=== PATIENT | female | born 1945 | race Caucasian/White ===

== ENCOUNTER 2022-02-22 00:16 | Day surgery (SDC) | payer MEDICARE, BC, SELFPAY ==
--- NOTE | 2022-02-18 12:44 | PC.NURSE ---
attempted pre-procedure call, left message to arrive at 0730 on monday, nothing to eat or drink after midnight, no eliquis to be taken after 02/19 and to wear comfortable clothing. phone number left to call us back if she has any questions or concerns
[2022-02-22] VITALS (9 sets, daily range): BP systolic 131–167; BP diastolic 56–98; PULSE 82–106; RESP 16–18; TEMP 36.2–36.5; O2SAT 95–98; BMI 36.1
--- NOTE | 2022-02-22 08:44 | SUR.PREOP ---
Dr. Steven TADEO at bedside talking with patient and family preprocedure.
--- NOTE | 2022-02-22 08:48 | WPDHPUPDATE1 ---
History and Physical Update Update Date/Time: 02/22/22 08:48 History and Physical has been reviewed, including an updated exam of the patient. There are NO changes in the patient's condition. Risks, benefits, and alternatives have been discussed and questions answered. Patient agrees to proceed with procedure.
--- NOTE | 2022-02-22 08:48 | WPDMODSED ---
Moderate Sedation Note-Pt Data Patient Data Allergies Allergy/AdvReac Type Severity Reaction Status Date / Time Penicillins Allergy Severe HIVES,FACIAL Verified 02/22/22 07:44 SWELLING Home Medications Medication Instructions Recorded Confirmed Type apixaban 5 mg tablet (Eliquis) 5 mg PO BID 09/17/20 02/22/22 History biotin 1,000 mcg chewable tablet 1,000 mcg PO DAILY 09/17/20 02/22/22 History cetirizine 10 mg tablet 5 mg PO DAILY 09/17/20 02/22/22 History cholecalciferol (vitamin D3) 25 25 mcg PO DAILY 09/17/20 02/22/22 History mcg (1,000 unit) capsule furosemide 40 mg tablet 40 mg PO QAM 09/17/20 02/22/22 History metoprolol succinate 25 mg 25 mg PO DAILY 09/17/20 02/22/22 History tablet,extended release 24 hr omeprazole 40 mg capsule,delayed 40 mg PO DAILY 09/17/20 02/22/22 History release trazodone 100 mg tablet 50 mg PO BID 09/17/20 09/17/20 History Sedation/Anesthesia: No previous sedation/anesthesia problems (including family history). [facility] Past Medical History Medical History (Updated 09/17/20 @ 10:33 by Vahid Rdz MD) Anemia Arthritis of right knee BMI 40.0-44.9, adult Cardiac arrhythmia Surgical History Surgical History (Updated 09/17/20 @ 10:28 by Vahid Rdz MD) H/O shoulder surgery reverse left shoulder, March 2020, Dr. Mccormick Hx of left knee surgery TKA 2013 Hx of right knee surgery arthroscopy 2009 Family History Family History (Updated 09/17/20 @ 10:21 by Priscilla Morgan) Other Cerebrovascular accident Heart disease Hypertension Social History Social History (Updated 09/17/20 @ 10:21 by Priscilla Morgan) Smoking status: Former smoker Alcohol intake: never Gender identity (if verbalized by the patient): Female Mod Sed Physical Exam Physical Exam Pre Procedural Exam: Normal: Airway Hours since solid foods: 10 Hours since liquid intake: 10 Mallampati Classification: class II Internal Medicine - PN: Obj Da Vital Signs Vital Signs: Vital Signs - 24 hr 02/22/22 07:50 Temperature 36.5 C Pulse Rate 100 Respiratory Rate 18 Blood Pressure 131/78 Pulse Oximetry 98 Oxygen Delivery Room Air ASA Classification/Sedation ASA Classification/Sedation ASA Class: III Emergent: No Risks: Risks, benefits and alternatives explained and patient/family accepted plan for sedation. Patient re-evaluated immediately prior to sedation.
--- NOTE | 2022-02-22 10:12 | WPDCARDPROC ---
Cardiac Cath Procedure Note Date of procedure:: 02/22/22 Performing physician:: Emir Harris MD Procedure Procedure note:: LEFT HEART CATHETERIZATION AND CORONARY ANGIOGRAM REPORT DATE OF PROCEDURE: 02/22/2022 INDICATION FOR PROCEDURE: chest pain, abnormal MPI BRIEF CLINICAL HISTORY: 76-year-old female with CHF with preserved ejection fraction, atrial fibrillation on anticoagulation , URMILA. Patient was referred by Dr. Basilio for cardiac catheterization in the setting of chest discomfort and abnormal MPI. Based on clinical notes, MPI from 01/20/2022 reportedly showed LVEF 41%, hypokinesis in the mid anteroseptal, mid inferoseptal, mid inferior, apical anterior, apical septal, apical inferior segment and apical segment; anterior and apical ischemia with infarction. Benefits and risks of the procedure were discussed with the patient in depth, and informed consent was obtained prior to the procedure. Risks of the procedure include but are not limited to vascular complications including groin hematoma, retroperitoneal bleed, vessel perforation; periprocedural FL, cardiac arrhythmias, stroke, contrast induced nephropathy, and . After discussing all the benefits, risks and alternatives, patient was willing to proceed with the procedure. PROCEDURES PERFORMED: 1. Left heart catheterization- Selective left and right coronary angiogram; left ventriculogram and hemodynamic assessment 2. Selective right common femoral angiogram and deployment of Angio-Seal hemostatic device 3. Moderate sedation-CPT code 91797 MODERATE SEDATION: Midazolam 1 mg; fentanyl 50 mcg; Start time 0945 , Stop time 1005 ; Total [id number] time 20 minutes; Pepe Mcdonough RN was trained observer for moderate sedation. ACCESS SITE: Right common femoral artery PROCEDURE NOTE: After obtaining informed consent, patient was brought to catheterization lab and prepped and draped in a usual sterile manner. After local anesthesia with lidocaine, right common femoral artery access was taken with micropuncture needle followed by insertion of a 6 Malian sheath. Selective left and right coronary angiogram was performed using 5 Malian JL4 and JR4 catheters respectively. Orthogonal views were taken. Next, a 5 Malian pigtail catheter was advanced in the LV cavity and was flushed with normal saline. LV pressure measurement was performed. After this, left ventriculogram was performed. The catheter was flushed again, and gradient across the aortic valve was measured on the pullback of the catheter. Finally, selective right common femoral angiogram was performed followed by successful deployment of Angio-Seal vascular closure device. Patient tolerated procedure well without any immediate procedure related complications. FINDINGS: LEFT MAIN CORONARY: Medium to large caliber vessel, no significant focal stenosis. LEFT ANTERIOR DESCENDING ARTERY: Medium caliber vessel, tapers distally, becomes smaller caliber vessel in the distal segment. Diagonal branches are small to medium caliber vessel with poorly defined narrowing at the ostium. No significant focal stenosis seen in the LAD. LEFT CIRCUMFLEX ARTERY: Medium caliber vessel, continues as tortuous OM branch without significant focal stenosis. The main LCX is small caliber and continues in the AV groove. RIGHT CORONARY ARTERY: Medium to large caliber, dominant vessel. It gives rise to medium caliber PDA and PLV branches. There is minimal plaque in the mid segment. LEFT VENTRICULOGRAM: Variable LV contractility due to atrial fibrillation. Ejection fraction is approximately 45%. HEMODYNAMIC ASSESSMENT: Opening pressure 125/92 mmHg , closing pressure 153/70 mmHg , LVEDP 24 mmHg , no significant gradient across aortic valve on the pullback of pigtail catheter. RIGHT COMMON FEMORAL ARTERY: Patent RHYTHM: Atrial fibrillation CONCLUSIONS: 1. Minor plaque mid RCA, otherwise no significant obstructive CAD in the major
== END 2022-02-22 13:57 | disposition home or self-care (01) ==
PROVIDERS: Visit Provider Internal Medicine Cardiovascular Disease
PROC: 4A023N7 Measurement of Cardiac Sampling and Pressure, Left Heart, Percutaneous Approach (ICD-10-PCS; CPT 93452; principal; 2022-02-22 09:00)
DX: I25.10 Atherosclerotic heart disease of native coronary artery without angina pectoris (principal); I48.20 Chronic atrial fibrillation, unspecified; D64.9 Anemia, unspecified; I11.0 Hypertensive heart disease with heart failure; I50.32 Chronic diastolic (congestive) heart failure; Z79.84 Long term (current) use of oral hypoglycemic drugs; M17.11 Unilateral primary osteoarthritis, right knee; Z87.891 Personal history of nicotine dependence; I49.5 Sick sinus syndrome; G47.33 Obstructive sleep apnea (adult) (pediatric); K21.9 Gastro-esophageal reflux disease without esophagitis; E78.2 Mixed hyperlipidemia; I50.9 Heart failure, unspecified; R94.39 Abnormal result of other cardiovascular function study; R07.89 Other chest pain; I48.0 Paroxysmal atrial fibrillation; Z79.01 Long term (current) use of anticoagulants; E66.9 Obesity, unspecified; Z68.36 Body mass index [BMI] 36.0-36.9, adult
CPT/HCPCS: 93458; C1760; C1887; C1894; G0269; J1644; J2250; J3010; J7040